=== PATIENT | female | born 1950 | race Caucasian/White ===

== ENCOUNTER 2020-02-23 13:25 | Inpatient (IN) | payer OTHER ==
[~2020-02-23] VITALS: Ht 154.9 cm; Wt 82.7 kg
[2020-02-23] MEDS ORDERED: ONDANSETRON HCL 4 MG/2 ML VIAL IV ONE (13:45)
[2020-02-23] MEDS ORDERED: MORPHINE SULFATE 4 MG/ML SYR/VIAL IV ONE (13:45)
[2020-02-23 13:55] LABS: Basophils # (auto) 0 10 ^3/uL (0-0.2); Basophils % (auto) 0.5 % (0.0-2.0); Eosinophils # (auto) 0.2 10 ^3/uL (0-0.8); Nucleated Red Blood Cells % 0.1 %; White Blood Cell 8.2 10^3/uL (4.4-10.8)
[2020-02-23 13:56] LABS: Eosinophils % (auto) 2.1 % (0.0-7.0); Hematocrit 35.9 % (36.0-46.0); Lymphocytes # (auto) 1.7 10 ^3/uL (0.4-5.4); Lymphocytes % (auto) 20.2 % (10.0-50.0); Mean Corpuscular Hemoglobin 27.2 pg (28.0-32.0); Mean Corpuscular Hgb Conc. 33.2 g/dL (32.0-36.0); Mean Corpuscular Volume 81.8 fL (80.0-100.0); Monocytes # (auto) 0.8 10 ^3/uL (0-1.3); Monocytes % (auto) 9.5 % (0.0-12.0); Neutrophils # (auto) 5.6 10 ^3/uL (1.6-8.6); Neutrophils % (auto) 67.7 % (37.0-80.0); Platelet Count (auto) 204 10^3/uL (140-450); Red Cell Distribution Width 18.7 % (11.8-14.3)
[2020-02-23 14:19] LABS: Albumin 3.2 g/dL (3.4-5.0); Anion Gap 12 (5-15); Blood Urea Nitrogen 14 mg/dL (7-18); Carbon Dioxide 22 mmol/L (21-32); Chloride 104 mmol/L (98-107); Glucose 102 mg/dL (74-106); Potassium 3.6 mmol/L (3.5-5.1); Sodium 138 mmol/L (136-145)
[2020-02-23 14:25] LABS: Alanine Aminotransferase 31 U/L (13-56); Alkaline Phosphatase 100 U/L (45-117); Aspartate Aminotransferase 30 U/L (15-37); BUN/Creatinine Ratio 9.5; Bilirubin, Total 0.4 mg/dL (0.2-1.0); GFR African American 45 mL/min; GFR Non-African American 38 mL/min; Total Protein 7.5 g/dL (6.4-8.2)
[2020-02-23 14:34] LABS: Calcium 5.6 mg/dL (8.5-10.1)
[2020-02-23] MEDS ORDERED: CALCIUM ACETATE 667 MG CAP PO ONE (14:45)
[2020-02-23] MEDS ORDERED: ALBUTEROL SULF 2.5 MG/0.5ML(0.5%) NEB SOLN NEB ONE (15:15)
[2020-02-23] MEDS ORDERED: CALCIUM GLUC 4.65meq/50ml D5AE 50 ML IV ONE (15:15)
[2020-02-23] MEDS ORDERED: LORazepam 2MG/ML-1ML VIAL IV ONE (15:15)
[2020-02-23] MEDS ORDERED: NITROGLYCERIN 0.4 MG SL TAB SL PRN ×2 (15:15→15:45)
[2020-02-23] MEDS ORDERED: IPRATROPIUM BROM 0.5 MG/2.5ML INH SOL NEB ONE (15:15)
[2020-02-23] MEDS ORDERED: MORPHINE SULF INJ 2 MG/ML SYRINGE 1ML IV PRN (15:15)
[2020-02-23] MEDS ORDERED: LORazepam 0.5 MG TAB PO PRN (15:45)
[2020-02-23] MEDS ORDERED: DEXTROSE (50%) 50ML SYRG IV PRN (15:45)
[2020-02-23] MEDS ORDERED: ONDANSETRON HCL 4 MG/2 ML VIAL IV PRN (15:45)
[2020-02-23] MEDS ORDERED: GABAPENTIN 100 MG CAP PO ONE (16:00)
[2020-02-23] MEDS: SODIUM CHLORIDE 0.9% 1,000 ML IV SCH (16:18)
[2020-02-23] MEDS ORDERED: InsuLIN REG 1unit/0.01ml Soln (100units/ml) SC SCH (17:00)
[2020-02-23] MEDS ORDERED: ACCU-CHEK COMFORT CURVE STRIP VI SCH (17:00)
--- NOTE | 2020-02-23 17:20 | NUR ---
MS admit from ER TAM ROSENBERG admitted to tele/MS after SBAR received. Patient oriented to MELQUIADES CAN, RN primary RN, TELE unit, room 218, bed A, and unit policies regarding patient care and visiting hours. Patient weighed by bedscale and encouraged to call if they need something. All questions and concerns addressed, patient verbalized understanding.
[2020-02-23 17:50] VITALS: BP 116/65
[2020-02-23] MEDS ORDERED: CLOP75TA28 PO (18:18)
[2020-02-23] MEDS ORDERED: GABA300C10 PO (18:18)
[2020-02-23] MEDS ORDERED: LEVO100T8 PO (18:18)
[2020-02-23] MEDS ORDERED: ESOM20CA PO (18:18)
[2020-02-23] MEDS ORDERED: CHOL20007 PO (18:18)
[2020-02-23] MEDS: CALCIUM W/VIT D (600MG/400IU) TAB PO SCH (18:32)
--- NOTE | 2020-02-23 19:09 | NUR ---
CARE ENDORSED TO ALONA VOGEL.
--- NOTE | 2020-02-23 19:20 | NUR ---
Opening Shift Note Assumed care of patient, awake and alert. No S/S of distress/SOB or pain. Instructed on POC and questions answered. Bed is locked in lowest position with side rails up x2 for safety, call light is within reach and patient encouraged to call for assistance PRN, will continue to monitor for changes Q1hr and PRN.
[2020-02-23 21:02] VITALS: BP 108/61
[2020-02-23] MEDS ORDERED: ATORVASTATIN 20 MG TAB PO SCH (22:00)
[2020-02-23] MEDS: METOPROLOL TARTRATE 25 MG TAB PO SCH (22:37)
[2020-02-23] MEDS: GABAPENTIN 100 MG CAP PO SCH (22:37)
--- NOTE | 2020-02-23 23:41 | NUR ---
UA SAMPLE SENT TO LAB PER ORDERS.
[2020-02-24 00:02] LABS: Urine Bacteria FEW /hpf (None Seen); Urine Blood Negative /uL (Negative); Urine Specific Gravity 1.011 (1.001-1.035); Urine WBC 32 /hpf (0 - 5)
[2020-02-24 00:05] LABS: Amphetamine Screen, Urine NEGATIVE (NEGATIVE); Barbiturate Scree,Urine NEGATIVE (NEGATIVE); Benzodiazephine Screen, Urine NEGATIVE (NEGATIVE); Cannabinoid Screen, Urine NEGATIVE (NEGATIVE); Cocaine Screen, Urine NEGATIVE (NEGATIVE); Opiate Scree,Urine POSITIVE (NEGATIVE); Phencyclidine Screen, Urine NEGATIVE (NEGATIVE)
[2020-02-24 00:12] LABS: Alcohol, Urine < 3.0 mg/dL (0-5)
[2020-02-24 05:00] VITALS: BP 98/57
[2020-02-24] MEDS: SODIUM CHLORIDE 0.9% 1,000 ML IV SCH ×2 (05:50→18:38)
[2020-02-24] MEDS: GABAPENTIN 100 MG CAP PO SCH ×3 (05:51→21:46)
[2020-02-24 06:04] LABS: Basophils # (auto) 0.1 10 ^3/uL (0-0.2); Basophils % (auto) 1.4 % (0.0-2.0); Eosinophils # (auto) 0.2 10 ^3/uL (0-0.8); Eosinophils % (auto) 2.7 % (0.0-7.0); Hematocrit 33.3 % (36.0-46.0); Hemoglobin 10.9 g/dL (12.2-16.2); Lymphocytes # (auto) 1.3 10 ^3/uL (0.4-5.4); Lymphocytes % (auto) 21.1 % (10.0-50.0); Mean Corpuscular Hemoglobin 27.2 pg (28.0-32.0); Mean Corpuscular Hgb Conc. 32.8 g/dL (32.0-36.0); Mean Corpuscular Volume 82.9 fL (80.0-100.0); Monocytes # (auto) 0.6 10 ^3/uL (0-1.3); Neutrophils # (auto) 4.1 10 ^3/uL (1.6-8.6); Neutrophils % (auto) 65.8 % (37.0-80.0); Nucleated Red Blood Cells % 0.1 %; Platelet Count (auto) 163 10^3/uL (140-450); Red Blood Cells 4.02 10^6/uL (4.0-5.20); Red Cell Distribution Width 18.4 % (11.8-14.3); White Blood Cell 6.3 10^3/uL (4.4-10.8)
[2020-02-24 06:22] LABS: Albumin 2.8 g/dL (3.4-5.0); Magnesium 2.1 mg/dL (1.6-2.6); Potassium 3.7 mmol/L (3.5-5.1)
[2020-02-24 06:25] LABS: BUN/Creatinine Ratio 11.7; Bilirubin, Total 0.4 mg/dL (0.2-1.0); Total Protein 6.7 g/dL (6.4-8.2)
[2020-02-24 06:26] LABS: INR 1.07 (0.9-1.15); Partial Thromboplastin Time 30.6 sec (23.64-32.05)
[2020-02-24 06:30] LABS: Calcium 5.6 mg/dL (8.5-10.1); Cholesterol 267 mg/dL (< 200); HDL Cholesterol 36 mg/dL (40-59); LDL Cholesterol 181 mg/dL (< 100); Triglycerides 276 mg/dL (< 150)
[2020-02-24 08:00] VITALS: BP 98/61
--- NOTE | 2020-02-24 08:07 | NUR ---
Opening Shift Note Assumed care of patient, awake and alert. Patient on room air, breath sounds even and unlabored. No S/S of distress/SOB or pain. Instructed on POC and to call for assist PRN. Bed at lowest locked position and call light within reach. Will continue to monitor for changes Q1hr and PRN.
[2020-02-24] MEDS: METOPROLOL TARTRATE 25 MG TAB PO SCH (08:10)
[2020-02-24] MEDS: ENOXAPARIN SOD 40 MG/0.4 ML SYRINGE SC SCH (08:10)
[2020-02-24] MEDS: CALCIUM W/VIT D (600MG/400IU) TAB PO SCH ×2 (08:11→17:47)
[2020-02-24] MEDS: DOCUSATE SOD 100 MG CAP PO SCH (08:11)
[2020-02-24] MEDS: ASPirin 81 mg TAB PO SCH (08:11)
[2020-02-24 08:58] VITALS: BP 98/61
[2020-02-24] MEDS ORDERED: CEFTRIAXONE SODIUM 2 GM in D5W 5% 50 ML IV SCH (10:00)
[2020-02-24] MEDS: CALCIUM ACETATE 667 MG CAP PO SCH ×2 (12:00→17:48)
--- NOTE | 2020-02-24 12:00 | NUR ---
IV insertion IV access obtained, via clean sterile technique by inserting 22 gauge catheter at right hand after 1 attempt. IV secured properly. No trauma to site. Patient tolerated well.
[2020-02-24] MEDS ORDERED: OPTISON 3ml Vial for INJ IV ONE (12:01)
[2020-02-24] MEDS: ATORVASTATIN 20 MG TAB PO SCH ×2 (14:04→21:46)
--- NOTE | 2020-02-24 16:33 | NUR ---
PATIENT C/O RIGHT CHEST PAIN AND HEADACHE. RATES IT 05/11, WILL MEDICATE PER MD ORDERS. Addendum: 02/24/20 at 1735 by Magaly Griffin RN PAIN REASSESSMENT PATIENT COMFORTABLY SLEEPING .
[2020-02-24] MEDS: HYDROcodone-ACET 5/325MG TAB PO PRN ×2 (16:34→20:44)
--- NOTE | 2020-02-24 16:35 | NUR ---
COLLECTED URINE SAMPLE ,SENT TO LAB VIA [employer] [facility].
[2020-02-24 17:18] VITALS: BP 95/59
[2020-02-24] MEDS ORDERED: CALCIUM W/VIT D (600MG/400IU) TAB PO SCH (18:00)
[2020-02-24 19:28] LABS: Creatinine, Urine 40 mg/dL (30.0-125.0); Sodium Urine 48 mmol/L (40-220)
--- NOTE | 2020-02-24 19:33 | NUR ---
closing shift note: Patient is comfortably resting in bed on room air, breath sounds even and unlabored . No c/o pain. No s/s of distress/sob noted. Bed at lowest locked position and call light within reach. Care endorsed to NOC LELA Caicedo.
[2020-02-24 22:00] VITALS: BP 107/62
[2020-02-25] MEDS: HYDROcodone-ACET 5/325MG TAB PO PRN (00:50)
[2020-02-25] MEDS: GABAPENTIN 100 MG CAP PO SCH ×3 (06:09→22:30)
[2020-02-25 06:16] VITALS: BP 109/56
[2020-02-25 06:39] LABS: Potassium 3.8 mmol/L (3.5-5.1)
[2020-02-25 06:49] LABS: Albumin 2.8 g/dL (3.4-5.0); BUN/Creatinine Ratio 12.1; Bilirubin, Total 0.4 mg/dL (0.2-1.0); Calcium 6.9 mg/dL (8.5-10.1); Phosphorus 4.9 mg/dL (2.5-4.90); Total Protein 6.7 g/dL (6.4-8.2)
[2020-02-25] MEDS: SODIUM CHLORIDE 0.9% 1,000 ML IV SCH ×2 (07:33→22:29)
[2020-02-25] MEDS: CALCIUM W/VIT D (600MG/400IU) TAB PO SCH (07:34)
[2020-02-25] MEDS: CALCIUM ACETATE 667 MG CAP PO SCH ×3 (07:34→18:00)
[2020-02-25 09:00] VITALS: BP 119/66
[2020-02-25] MEDS: DOCUSATE SOD 100 MG CAP PO SCH (10:00)
[2020-02-25] MEDS: ASPirin 81 mg TAB PO SCH (10:00)
[2020-02-25] MEDS: ENOXAPARIN SOD 40 MG/0.4 ML SYRINGE SC SCH (10:00)
--- NOTE | 2020-02-25 12:30 | NUR ---
PATIENT DID NOT TOLERATE LUNCH. SHE SAID SHE STILL DOES NOT FEEL WELL.
[2020-02-25 13:00] VITALS: BP 123/64
[2020-02-25] MEDS ORDERED: ACETAMINOPHEN 325 MG TAB PO PRN (14:15)
[2020-02-25 17:00] VITALS: BP 144/70
[2020-02-25] MEDS: METOCLOPRAMIDE HCL 5MG/ml INJ 2ml VIAL IV SCH ×2 (18:44→23:57)
--- NOTE | 2020-02-25 19:30 | NUR ---
Opening Shift Note Assumed care of patient, awake and alert. No S/S of distress/SOB, patient has no complaints of nausea at this time. POC discussed. Bed is locked in lowest position with side rails up x2 for safety. Call light is within reach and encouraged to call for assistance PRN, will continue to monitor for changes Q1hr and PRN.
[2020-02-25 22:00] VITALS: BP 151/70
[2020-02-25] MEDS: PANTOPRAZOLE 40 MG/10 ML VIAL INJ IV SCH (22:29)
[2020-02-25] MEDS: ATORVASTATIN 20 MG TAB PO SCH (22:29)
[2020-02-26 05:00] VITALS: BP 111/62
[2020-02-26] MEDS: GABAPENTIN 100 MG CAP PO SCH (05:41)
[2020-02-26] MEDS: METOCLOPRAMIDE HCL 5MG/ml INJ 2ml VIAL IV SCH (05:41)
[2020-02-26 06:31] LABS: Potassium 4.3 mmol/L (3.5-5.1)
[2020-02-26 06:39] LABS: Albumin 2.8 g/dL (3.4-5.0); BUN/Creatinine Ratio 12.5; Bilirubin, Total 0.7 mg/dL (0.2-1.0); Total Protein 6.4 g/dL (6.4-8.2)
--- NOTE | 2020-02-26 07:26 | NUR ---
Opening Shift Note Assumed care of patient, awake and alert. No S/S of distress/SOB or pain. Instructed on POC and to call for assist PRN, will continue to monitor for changes Q1hr and PRN.
[2020-02-26] MEDS: CALCIUM ACETATE 667 MG CAP PO SCH ×2 (07:49→11:41)
[2020-02-26] MEDS: DOCUSATE SOD 100 MG CAP PO SCH (09:52)
[2020-02-26] MEDS: PANTOPRAZOLE 40 MG/10 ML VIAL INJ IV SCH (09:52)
[2020-02-26] MEDS: ENOXAPARIN SOD 40 MG/0.4 ML SYRINGE SC SCH (09:52)
[2020-02-26] MEDS: ASPirin 81 mg TAB PO SCH (09:52)
[2020-02-26] MEDS ORDERED: CALC667C5 PO (10:43)
[2020-02-26] MEDS ORDERED: CHOL20007 PO (10:43)
[2020-02-26] MEDS ORDERED: ATOR20TA50 PO (10:43)
[2020-02-26] MEDS ORDERED: ESOM20CA PO (10:43)
[2020-02-26 13:10] VITALS: BP 127/59
== END 2020-02-26 13:30 | disposition home or self-care (01) | DRG 391 ==
LOC: EDBD 13:25 → ER 13:25 → TELE 13:26 → TELE-CENTR 17:11
PROVIDERS: ADMIT Hospitalist; ATTEND Hospitalist
DX: K21.9 Gastro-esophageal reflux disease without esophagitis (principal); N17.0 Acute kidney failure with tubular necrosis; E44.0 Moderate protein-calorie malnutrition; N10 Acute pyelonephritis; E83.51 Hypocalcemia; J44.9 Chronic obstructive pulmonary disease, unspecified; Z68.34 Body mass index [BMI] 34.0-34.9, adult; E16.2 Hypoglycemia, unspecified; E66.01 Morbid (severe) obesity due to excess calories; E83.39 Other disorders of phosphorus metabolism; E78.00 Pure hypercholesterolemia, unspecified; F41.1 Generalized anxiety disorder; I12.9 Hypertensive chronic kidney disease with stage 1 through stage 4 chronic kidney disease, or unspecified chronic kidney disease; N18.9 Chronic kidney disease, unspecified; Z82.49 Family history of ischemic heart disease and other diseases of the circulatory system; Z83.3 Family history of diabetes mellitus; Z86.73 Personal history of transient ischemic attack (TIA), and cerebral infarction without residual deficits; G89.29 Other chronic pain; M54.5 Low back pain
CPT/HCPCS: 36415; 36600; 71045; 76775; 80053; 80061; 80307; 81001; 82306; 82570; 82805; 82962; 83036; 83735; 83970; 84100; 84300; 84484; 85025; 85610; 85730; 93306; 94640; C9113; G0378; J0610; J0696; J2405; J7060; Q9956

== ENCOUNTER 2021-10-18 19:02 | Inpatient (IN) | payer OTHER ==
[~2021-10-18] VITALS: Ht 154.9 cm; Wt 81.1 kg
[~2021-10-18 19:02] MED LIST: ATOR20TA50 PO; CALC667C5 PO; CHOL20007 PO; CLOP75TA28 PO; ESOM20CA PO; GABA300C10 PO; LEVO100T8 PO
[2021-10-18] MEDS ORDERED: SODIUM CHLORIDE 0.9% 500 ML IV ONE (19:45)
[2021-10-19 00:08] LABS: Basophils # (auto) 0 10 ^3/uL (0-0.2); Nucleated Red Blood Cells % 0.1 %
[2021-10-19 00:11] LABS: Basophils % (auto) 0.3 % (0.0-2.0); Eosinophils # (auto) 0.1 10 ^3/uL (0-0.8); Eosinophils % (auto) 0.9 % (0.0-7.0); Hematocrit 35.1 % (36.0-46.0); Hemoglobin 12.2 g/dL (12.2-16.2); Lymphocytes # (auto) 1.2 10 ^3/uL (0.4-5.4); Lymphocytes % (auto) 8.8 % (10.0-50.0); Mean Corpuscular Hemoglobin 26.8 pg (28.0-32.0); Mean Corpuscular Hgb Conc. 34.8 g/dL (32.0-36.0); Mean Corpuscular Volume 76.9 fL (80.0-100.0); Monocytes # (auto) 0.9 10 ^3/uL (0-1.3); Monocytes % (auto) 6.8 % (0.0-12.0); Neutrophils # (auto) 11.3 10 ^3/uL (1.6-8.6); Neutrophils % (auto) 83.2 % (37.0-80.0); Red Blood Cells 4.57 10^6/uL (4.0-5.20); White Blood Cell 13.6 10^3/uL (4.4-10.8)
[2021-10-19 00:16] LABS: Red Cell Distribution Width 20.1 % (11.8-14.3)
[2021-10-19] MEDS ORDERED: ONDANSETRON HCL 4 MG/2 ML VIAL IV PRN (02:30)
[2021-10-19] MEDS ORDERED: DOCUSATE SOD 100 MG CAP PO PRN (02:30)
[2021-10-19] MEDS ORDERED: HYDROcodone-ACET 5/325MG TAB PO PRN (02:30)
[2021-10-19 04:09] LABS: Cholesterol 184 mg/dL (< 200); Triglycerides 102 mg/dL (< 150)
[2021-10-19 04:11] LABS: Alanine Aminotransferase 20 U/L (13-56); Aspartate Aminotransferase 21 U/L (15-37)
[2021-10-19 04:12] LABS: HDL Cholesterol 44 mg/dL (40-59); LDL Cholesterol 114 mg/dL (< 100)
[2021-10-19 04:18] LABS: Anion Gap 9 (5-15); Blood Urea Nitrogen 16 mg/dL (7-18); Carbon Dioxide 24 mmol/L (21-32); Chloride 104 mmol/L (98-107); Glucose 101 mg/dL (74-106); Potassium 3.3 mmol/L (3.5-5.1); Sodium 137 mmol/L (136-145)
[2021-10-19 04:19] LABS: Albumin 2.9 g/dL (3.4-5.0); Alkaline Phosphatase 85 U/L (45-117); Bilirubin, Total 0.7 mg/dL (0.2-1.0); GFR African American 56 mL/min; GFR Non-African American 46 mL/min; Total Protein 7.5 g/dL (6.4-8.2)
[2021-10-19 04:21] LABS: Calcium 5.9 mg/dL (8.5-10.1)
[2021-10-19 05:09] LABS: Basophils # (auto) 0.1 10 ^3/uL (0-0.2); Eosinophils # (auto) 0.2 10 ^3/uL (0-0.8); Hemoglobin 11.4 g/dL (12.2-16.2); Lymphocytes # (auto) 1.3 10 ^3/uL (0.4-5.4); Mean Corpuscular Volume 78.7 fL (80.0-100.0); Monocytes # (auto) 0.8 10 ^3/uL (0-1.3); Neutrophils # (auto) 9.4 10 ^3/uL (1.6-8.6); Red Cell Distribution Width 19.2 % (11.8-14.3)
[2021-10-19 05:12] LABS: Eosinophils % (auto) 2.1 % (0.0-7.0); Hematocrit 34.7 % (36.0-46.0); Lymphocytes % (auto) 10.8 % (10.0-50.0); Mean Corpuscular Hemoglobin 25.8 pg (28.0-32.0); Mean Corpuscular Hgb Conc. 32.9 g/dL (32.0-36.0); Monocytes % (auto) 7.1 % (0.0-12.0); Red Blood Cells 4.41 10^6/uL (4.0-5.20); White Blood Cell 11.9 10^3/uL (4.4-10.8)
[2021-10-19 05:31] LABS: Albumin 2.9 g/dL (3.4-5.0); Potassium 3.3 mmol/L (3.5-5.1)
[2021-10-19 05:36] LABS: BUN/Creatinine Ratio 12.9; Bilirubin, Total 0.7 mg/dL (0.2-1.0); Total Protein 7.6 g/dL (6.4-8.2)
[2021-10-19] MEDS: SODIUM CHLOR 0.9% PF (SALINE LOCK) 10ML VIAL/SYR IV SCH ×3 (06:00→22:47)
[2021-10-19] MEDS ORDERED: MORPHINE SULFATE INJECTION 2 MG/ML SYRG IV PRN (06:00)
[2021-10-19] MEDS ORDERED: NITROGLYCERIN 0.4 MG SL TAB SL PRN (06:00)
[2021-10-19 06:31] LABS: Calcium 5.9 mg/dL (8.5-10.1)
[2021-10-19] MEDS ORDERED: CALCIUM CARB 500 MG CHEW TAB PO ONE (06:45)
[2021-10-19] MEDS ORDERED: LEVOTHYROXINE SODIUM 88 MCG TAB PO SCH (07:00)
[2021-10-19] MEDS ORDERED: POTASSIUM CHL 20 Meq TABLET PO ONE (10:00)
[2021-10-19 11:32] VITALS: BP 96/73
[2021-10-19] MEDS: ZINC SULFATE 220mg CAP or TAB PO SCH (13:29)
[2021-10-19] MEDS: ASCORBIC ACID 500 MG TAB PO SCH ×2 (13:29→22:47)
[2021-10-19] MEDS: FAMOTIDINE (10MG/ML) 2ML VL IV SCH (13:29)
[2021-10-19] MEDS: ASPirin 81 mg TAB PO SCH (13:29)
[2021-10-19] MEDS: cefTRIAXone 1GM/50ML D5W 50 ML IV SCH (13:38)
[2021-10-19] MEDS: MULTIPLE VITAMIN TAB PO SCH (13:47)
[2021-10-19] MEDS ORDERED: CALCIUM GLUC 1,000mg/50ml-NS 50 ML IV ONE (15:00)
[2021-10-19] MEDS ORDERED: SODIUM CHLORIDE 0.9% 1,000 ML IV ONE (15:00)
[2021-10-19 15:11] VITALS: BP 122/73
[2021-10-19] MEDS ORDERED: IOHEXOL 350 MG/ML 100ML IJ ONE (19:06)
[2021-10-19 22:00] VITALS: BP 132/60
[2021-10-19] MEDS: ATORVASTATIN 20 MG TAB PO SCH (22:47)
[2021-10-20 05:00] VITALS: BP 109/59
[2021-10-20] MEDS: SODIUM CHLOR 0.9% PF (SALINE LOCK) 10ML VIAL/SYR IV SCH ×3 (06:01→21:49)
[2021-10-20] MEDS: LEVOTHYROXINE SODIUM 100 MCG TAB PO SCH (06:45)
[2021-10-20 07:38] LABS: Basophils # (auto) 0.1 10 ^3/uL (0-0.2); Eosinophils # (auto) 0.2 10 ^3/uL (0-0.8); Eosinophils % (auto) 3.8 % (0.0-7.0); Hemoglobin 11.1 g/dL (12.2-16.2); Monocytes # (auto) 0.6 10 ^3/uL (0-1.3); Red Cell Distribution Width 19.2 % (11.8-14.3); White Blood Cell 6.6 10^3/uL (4.4-10.8)
[2021-10-20 07:41] LABS: Basophils % (auto) 1.4 % (0.0-2.0); Hematocrit 34.3 % (36.0-46.0); Lymphocytes # (auto) 1.2 10 ^3/uL (0.4-5.4); Lymphocytes % (auto) 17.6 % (10.0-50.0); Mean Corpuscular Hemoglobin 25.7 pg (28.0-32.0); Mean Corpuscular Hgb Conc. 32.5 g/dL (32.0-36.0); Monocytes % (auto) 9.6 % (0.0-12.0); Neutrophils # (auto) 4.4 10 ^3/uL (1.6-8.6); Neutrophils % (auto) 67.6 % (37.0-80.0); Nucleated Red Blood Cells % 0.2 %; Red Blood Cells 4.34 10^6/uL (4.0-5.20)
[2021-10-20 07:44] LABS: Potassium 3.7 mmol/L (3.5-5.1)
[2021-10-20 07:52] LABS: Albumin 2.8 g/dL (3.4-5.0); Bilirubin, Total 0.4 mg/dL (0.2-1.0); Magnesium 2.4 mg/dL (1.6-2.6); Total Protein 6.5 g/dL (6.4-8.2)
[2021-10-20 08:30] VITALS: BP 117/61
[2021-10-20 08:46] LABS: Calcium 5.9 mg/dL (8.5-10.1)
[2021-10-20] MEDS: ASPirin 81 mg TAB PO SCH (10:16)
[2021-10-20] MEDS: ZINC SULFATE 220mg CAP or TAB PO SCH (10:17)
[2021-10-20] MEDS: cefTRIAXone 1GM/50ML D5W 50 ML IV SCH (10:17)
[2021-10-20] MEDS: MULTIPLE VITAMIN TAB PO SCH (10:17)
[2021-10-20] MEDS: ASCORBIC ACID 500 MG TAB PO SCH ×2 (10:17→21:39)
[2021-10-20] MEDS: FAMOTIDINE (10MG/ML) 2ML VL IV SCH (10:21)
[2021-10-20 10:46] VITALS: BP 111/88
[2021-10-20] MEDS: CALCIUM CARB 500 MG CHEW TAB PO SCH ×2 (18:06→21:39)
[2021-10-20] MEDS: ATORVASTATIN 20 MG TAB PO SCH (21:39)
[2021-10-20 22:00] VITALS: BP 121/72
[2021-10-21 05:00] VITALS: BP 102/52
[2021-10-21] MEDS: SODIUM CHLOR 0.9% PF (SALINE LOCK) 10ML VIAL/SYR IV SCH ×3 (06:00→22:11)
[2021-10-21] MEDS: CALCIUM CARB 500 MG CHEW TAB PO SCH ×4 (06:35→22:00)
[2021-10-21] MEDS: LEVOTHYROXINE SODIUM 100 MCG TAB PO SCH (06:35)
[2021-10-21 07:26] LABS: Potassium 3.9 mmol/L (3.5-5.1)
[2021-10-21 07:42] LABS: BUN/Creatinine Ratio 11.4; Calcium 6.3 mg/dL (8.5-10.1)
[2021-10-21 09:00] VITALS: BP 119/64
[2021-10-21] MEDS: cefTRIAXone 1GM/50ML D5W 50 ML IV SCH (10:19)
[2021-10-21] MEDS: ZINC SULFATE 220mg CAP or TAB PO SCH (10:20)
[2021-10-21] MEDS: ACETAMINOPHEN 325 MG TAB PO PRN ×2 (10:20→16:24)
[2021-10-21] MEDS: SUCRALFATE 1 GM/10 ML ORAL SUSP PO SCH ×3 (10:20→22:11)
[2021-10-21] MEDS: ASCORBIC ACID 500 MG TAB PO SCH ×2 (10:20→22:11)
[2021-10-21] MEDS: MULTIPLE VITAMIN TAB PO SCH (10:20)
[2021-10-21] MEDS: FAMOTIDINE (10MG/ML) 2ML VL IV SCH (10:20)
[2021-10-21] MEDS: ASPirin 81 mg TAB PO SCH (10:20)
[2021-10-21 12:30] VITALS: BP 117/73
[2021-10-21 17:00] VITALS: BP 112/64
[2021-10-21] MEDS: ATORVASTATIN 20 MG TAB PO SCH (22:11)
[2021-10-21] MEDS ORDERED: LORazepam 2MG/ML-1ML VIAL IV PRN (23:00)
[2021-10-22 05:40] VITALS: BP 118/71
[2021-10-22] MEDS: CALCIUM CARB 500 MG CHEW TAB PO SCH ×3 (06:00→18:00)
[2021-10-22] MEDS: LEVOTHYROXINE SODIUM 100 MCG TAB PO SCH (06:12)
[2021-10-22] MEDS: SODIUM CHLOR 0.9% PF (SALINE LOCK) 10ML VIAL/SYR IV SCH ×2 (06:12→14:00)
[2021-10-22] MEDS: SUCRALFATE 1 GM/10 ML ORAL SUSP PO SCH ×3 (06:12→17:00)
[2021-10-22 09:00] VITALS: BP 128/71
[2021-10-22] MEDS ORDERED: BENZOCAINE (DENTAL) 20 % SPRAY 60ML MT ONE (09:23)
[2021-10-22] MEDS: ASPirin 81 mg TAB PO SCH (09:57)
[2021-10-22] MEDS: cefTRIAXone 1GM/50ML D5W 50 ML IV SCH (09:57)
[2021-10-22] MEDS: ASCORBIC ACID 500 MG TAB PO SCH (09:57)
[2021-10-22] MEDS: ACETAMINOPHEN 325 MG TAB PO PRN (09:57)
[2021-10-22] MEDS: ZINC SULFATE 220mg CAP or TAB PO SCH (09:57)
[2021-10-22] MEDS: FAMOTIDINE (10MG/ML) 2ML VL IV SCH (09:57)
[2021-10-22] MEDS: MULTIPLE VITAMIN TAB PO SCH (10:00)
[2021-10-22] MEDS: MIDAZOLAM HCL 5 MG/ML-1ML VIAL ONE ×4 (11:47→11:56)
[2021-10-22] MEDS: fentaNYL CITRATE 100 MCG/2 ML VL ONE ×3 (11:47→11:53)
[2021-10-22] MEDS: diphenhdrAMINE HCL 50 MG/1 ML VL ONE ×2 (11:47→11:50)
[2021-10-22 17:00] VITALS: BP 111/66
[2021-10-22 17:08] VITALS: BP 111/66
[2021-10-22] MEDS ORDERED: PANTOPRAZOLE 40 MG TAB PO SCH (22:00)
== END 2021-10-22 19:00 | disposition home or self-care (01) | DRG 381 ==
LOC: EDBD 19:02 → ER 19:02 → OVERFLOW 19:03 → WEST WING 10-19 11:33
PROVIDERS: ADMIT Nurse Practitioner Family; ATTEND Internal Medicine Geriatric Medicine
PROC: 0DB98ZX Excision of Duodenum, Via Natural or Artificial Opening Endoscopic, Diagnostic (ICD-10-PCS; principal; 2021-10-18)
PROC: 0DB68ZX Excision of Stomach, Via Natural or Artificial Opening Endoscopic, Diagnostic (ICD-10-PCS; 2021-10-18)
PROC: 0DB38ZX Excision of Lower Esophagus, Via Natural or Artificial Opening Endoscopic, Diagnostic (ICD-10-PCS; 2021-10-18)
DX: K22.10 Ulcer of esophagus without bleeding (principal); D82.1 Di George's syndrome; N17.9 Acute kidney failure, unspecified; I24.9 Acute ischemic heart disease, unspecified; K29.70 Gastritis, unspecified, without bleeding; E83.51 Hypocalcemia; E03.9 Hypothyroidism, unspecified; K21.9 Gastro-esophageal reflux disease without esophagitis; E87.6 Hypokalemia; D64.9 Anemia, unspecified; Z20.822 Contact with and (suspected) exposure to COVID-19; M54.9 Dorsalgia, unspecified; R55 Syncope and collapse; E66.9 Obesity, unspecified; R56.9 Unspecified convulsions; Z82.49 Family history of ischemic heart disease and other diseases of the circulatory system; Z83.3 Family history of diabetes mellitus; Z86.73 Personal history of transient ischemic attack (TIA), and cerebral infarction without residual deficits; Z90.710 Acquired absence of both cervix and uterus; Z98.51 Tubal ligation status; Z68.33 Body mass index [BMI] 33.0-33.9, adult
CPT/HCPCS: 36415; 43239; 70450; 70551; 71045; 71250; 71275; 80048; 80053; 80061; 83735; 84443; 84484; 85025; 85379; 87040; 87426; 93005; 93306; 93886; 93970; 95819; 96360; G0378; J0696; J2250; J3490; J7042

== ENCOUNTER 2024-01-06 17:25 | Emergency (ER) | payer OTHER ==
[~2024-01-06] VITALS: Ht 154.9 cm; Wt 75.0 kg
[~2024-01-06 17:25] MED LIST changes: +GABA-1250 PO; -GABA300C10 PO
[2024-01-06 18:18] VITALS: BP 143/71; PULSE 82; RESP 16; TEMP 98.6; O2SAT 97
[2024-01-06] MEDS ORDERED: ACET500T58 PO (21:13)
== END 2024-01-06 21:38 | disposition home or self-care (01) ==
LOC: EDBD 17:25 → ER 17:25
DX: S83.8X2A Sprain of other specified parts of left knee, initial encounter (principal); S80.211A Abrasion, right knee, initial encounter; K21.9 Gastro-esophageal reflux disease without esophagitis; Z86.73 Personal history of transient ischemic attack (TIA), and cerebral infarction without residual deficits; Z98.890 Other specified postprocedural states; Z79.899 Other long term (current) drug therapy; W01.0XXA Fall on same level from slipping, tripping and stumbling without subsequent striking against object, initial encounter; Y93.89 Activity, other specified; Y92.89 Other specified places as the place of occurrence of the external cause; Y99.8 Other external cause status
CPT/HCPCS: 29505; 73562

== ENCOUNTER 2024-03-18 12:30 | Emergency (ER) | payer OTHER, MEDICAID ==
[~2024-03-18] VITALS: Ht 154.9 cm; Wt 80.0 kg
[~2024-03-18 12:30] MED LIST changes: +ACET500T58 PO
[2024-03-18 14:54] LABS: Chloride 105 mmol/L (98-107); Potassium 3.5 mmol/L (3.5-5.1); Sodium 141 mmol/L (136-145)
[2024-03-18 14:55] LABS: Anion Gap 8 (5-15); Calcium 6.7 mg/dL (8.5-10.1); Carbon Dioxide 28 mmol/L (20-30)
[2024-03-18 15:00] LABS: BUN/Creatinine Ratio 14.9 (10.0-20.0); Blood Urea Nitrogen 21 mg/dL (9-23); Glucose 108 mg/dL (74-106)
[2024-03-18 15:25] LABS: Basophils # (auto) 0.1 10 ^3/uL (0-0.2); Basophils % (auto) 0.9 % (0.0-2.0); Eosinophils # (auto) 0.2 10 ^3/uL (0-0.8); Eosinophils % (auto) 1.7 % (0.0-7.0); Hematocrit 40.1 % (36.0-46.0); Hemoglobin 13.1 g/dL (12.2-16.2); Lymphocytes # (auto) 1.5 10 ^3/uL (0.4-5.4); Lymphocytes % (auto) 13.5 % (10.0-50.0); Mean Corpuscular Hemoglobin 27.7 pg (28.0-32.0); Mean Corpuscular Hgb Conc. 32.6 g/dL (32.0-36.0); Mean Corpuscular Volume 85.1 fL (80.0-100.0); Monocytes # (auto) 0.7 10 ^3/uL (0-1.3); Neutrophils # (auto) 8.8 10 ^3/uL (1.6-8.6); Neutrophils % (auto) 77.9 % (37.0-80.0); Nucleated Red Blood Cells % 0.1 %; Red Blood Cells 4.71 10^6/uL (4.0-5.20); Red Cell Distribution Width 17.5 % (11.8-14.3); White Blood Cell 11.3 10^3/uL (4.4-10.8)
[2024-03-18 18:16] LABS: Urine Bacteria FEW /hpf (None Seen); Urine Blood TRACE /uL (Negative); Urine Clarity Clear (Clear); Urine Color Light-Yellow (Yellow); Urine Mucus FEW (None Seen); Urine Protein, UAD TRACE (Negative); Urine Specific Gravity 1.027 (1.001-1.035); Urine Urobilinogen Normal (Negative); Urine WBC 4 /hpf (0 - 5); Urine pH 5.5 (5.0-9.0)
[2024-03-18 18:24] VITALS: BP 132/72; PULSE 82; RESP 16; TEMP 97.9; O2SAT 96
== END 2024-03-18 18:25 | disposition home or self-care (01) ==
LOC: ER 12:30
DX: F41.8 Other specified anxiety disorders (principal); R07.89 Other chest pain; N18.9 Chronic kidney disease, unspecified; K21.9 Gastro-esophageal reflux disease without esophagitis; E03.9 Hypothyroidism, unspecified; Z90.710 Acquired absence of both cervix and uterus; Z79.01 Long term (current) use of anticoagulants; Z79.899 Other long term (current) drug therapy
CPT/HCPCS: 36415; 71046; 80048; 81001; 84484; 85025; 93005

== ENCOUNTER 2024-03-30 09:43 | Emergency (ER) | payer OTHER, MEDICAID ==
[~2024-03-30] VITALS: Ht 165.1 cm; Wt 82.0 kg
[2024-03-30 10:40] LABS: Lactic Acid w/Reflex 2.5 mmol/L (0.4-2.0)
[2024-03-30 10:41] LABS: Alanine Aminotransferase 20 U/L (7-40); Alkaline Phosphatase 83 U/L (46-116); Anion Gap 12 (5-15); Aspartate Aminotransferase 25 U/L (13-40); BUN/Creatinine Ratio 9.8 (10.0-20.0); Bilirubin, Total 0.3 mg/dL (0.2-1.0); Blood Urea Nitrogen 13 mg/dL (9-23); Calcium 6.1 mg/dL (8.5-10.1); Carbon Dioxide 25 mmol/L (20-30); Chloride 102 mmol/L (98-107); Glucose 131 mg/dL (74-106); Potassium 2.8 mmol/L (3.5-5.1); Sodium 139 mmol/L (136-145); Total Protein 7.6 g/dL (5.7-8.2)
[2024-03-30 10:49] LABS: Basophils # (auto) 0.1 10 ^3/uL (0-0.2); Basophils % (auto) 0.8 % (0.0-2.0); Eosinophils # (auto) 0.3 10 ^3/uL (0-0.8); Eosinophils % (auto) 3.3 % (0.0-7.0); Hematocrit 37.1 % (36.0-46.0); Hemoglobin 12.6 g/dL (12.2-16.2); Lymphocytes # (auto) 1.6 10 ^3/uL (0.4-5.4); Lymphocytes % (auto) 17.3 % (10.0-50.0); Mean Corpuscular Hemoglobin 28.6 pg (28.0-32.0); Mean Corpuscular Volume 84.1 fL (80.0-100.0); Monocytes # (auto) 0.6 10 ^3/uL (0-1.3); Monocytes % (auto) 6.7 % (0.0-12.0); Neutrophils # (auto) 6.6 10 ^3/uL (1.6-8.6); Neutrophils % (auto) 71.9 % (37.0-80.0); Nucleated Red Blood Cells % 0.2 %; Red Blood Cells 4.41 10^6/uL (4.0-5.20); Red Cell Distribution Width 17.7 % (11.8-14.3); White Blood Cell 9.2 10^3/uL (4.4-10.8)
[2024-03-30] MEDS: CALCIUM GLUC 1,000mg/50ml-NS 50 ML IV ONE (14:39)
[2024-03-30] MEDS: POTASSIUM EFFERVESENT TAB 25 MEQ GT ONE (14:40)
[2024-03-30 15:03] VITALS: RESP 14; O2SAT 95
[2024-03-30 15:11] VITALS: BP 133/75; PULSE 65; RESP 14; TEMP 97.5; O2SAT 95
== END 2024-03-30 15:54 | disposition short-term general hospital (02) ==
LOC: ER 09:43 → EDBD 09:43 → ER 15:54
DX: R47.1 Dysarthria and anarthria (principal); E83.51 Hypocalcemia; N18.9 Chronic kidney disease, unspecified; K21.9 Gastro-esophageal reflux disease without esophagitis; R56.9 Unspecified convulsions; E07.9 Disorder of thyroid, unspecified; Z86.73 Personal history of transient ischemic attack (TIA), and cerebral infarction without residual deficits; Z88.0 Allergy status to penicillin; Z79.899 Other long term (current) drug therapy; Z98.51 Tubal ligation status; Z90.710 Acquired absence of both cervix and uterus
CPT/HCPCS: 36415; 70450; 70496; 71045; 80053; 83605; 83735; 83880; 84484; 85025; 85379; 87040; 93005; 96365; 99285; J0613

== ENCOUNTER 2024-04-27 15:07 | Emergency (ER) | payer OTHER, MEDICAID ==
[~2024-04-27] VITALS: Ht 154.9 cm; Wt 75.0 kg
[2024-04-27 16:50] VITALS: PULSE 58; RESP 14; O2SAT 94
[2024-04-27 18:00] LABS: Basophils # (auto) 0.1 10 ^3/uL (0-0.2); Basophils % (auto) 0.9 % (0.0-2.0); Eosinophils # (auto) 0.2 10 ^3/uL (0-0.8); Eosinophils % (auto) 1.3 % (0.0-7.0); Hematocrit 33.5 % (36.0-46.0); Hemoglobin 11.1 g/dL (12.2-16.2); Lymphocytes # (auto) 1.3 10 ^3/uL (0.4-5.4); Lymphocytes % (auto) 10.7 % (10.0-50.0); Mean Corpuscular Hemoglobin 28.3 pg (28.0-32.0); Mean Corpuscular Hgb Conc. 33.2 g/dL (32.0-36.0); Mean Corpuscular Volume 85.2 fL (80.0-100.0); Monocytes # (auto) 0.7 10 ^3/uL (0-1.3); Monocytes % (auto) 5.6 % (0.0-12.0); Neutrophils # (auto) 9.7 10 ^3/uL (1.6-8.6); Neutrophils % (auto) 81.5 % (37.0-80.0); Nucleated Red Blood Cells % 0.1 %; Red Blood Cells 3.93 10^6/uL (4.0-5.20); Red Cell Distribution Width 18.1 % (11.8-14.3); White Blood Cell 11.9 10^3/uL (4.4-10.8)
[2024-04-27 18:14] LABS: Alanine Aminotransferase 20 U/L (7-40); Albumin 3.8 g/dL (3.2-4.8); Alkaline Phosphatase 70 U/L (46-116); Anion Gap 11 (5-15); Aspartate Aminotransferase 28 U/L (13-40); BUN/Creatinine Ratio 9.5 (10.0-20.0); Blood Urea Nitrogen 13 mg/dL (9-23); Calcium 6.1 mg/dL (8.5-10.1); Carbon Dioxide 25 mmol/L (20-30); Chloride 107 mmol/L (98-107); Glucose 118 mg/dL (74-106); Magnesium 1.5 mg/dL (1.6-2.6); Sodium 143 mmol/L (136-145)
[2024-04-27 18:15] LABS: Bilirubin, Total 0.5 mg/dL (0.2-1.0); Total Protein 5.9 g/dL (5.7-8.2)
[2024-04-27 19:30] VITALS: PULSE 61; RESP 20; O2SAT 96
[2024-04-27] MEDS: SODIUM CHLORIDE 0.9% 1,450 ML IV ONE (20:07)
[2024-04-27] MEDS: ACETAMINOPHEN 325 MG TAB PO ONE (20:32)
[2024-04-27] MEDS: LORazepam 2MG/ML-1ML VIAL IV ONE (20:32)
[2024-04-27 21:34] LABS: Blood Alcohol 3.8 mg/dL (<10); Magnesium 1.6 mg/dL (1.6-2.6)
[2024-04-27] MEDS: SODIUM CHLORIDE 0.9% 1,000 ML IVB ONE (22:31)
[2024-04-27] MEDS: POTASSIUM CHLORIDE 20 MEQ, LIDOCAINE 1% (LOCAL ANESTH.) 2 ML in SODIUM CHL 0.9% 100 ML IV ONE (22:45)
[2024-04-27] MEDS: POTASSIUM CHL 20MEQ/100ML 100 ML IV SCH (22:45)
[2024-04-27] MEDS: ALBUMIN 25% 100 ML IV ONE (23:06)
[2024-04-28] MEDS: MAGNESIUM SULFATE 1GM/100ML 100 ML IV SCH ×2 (00:01→02:45)
[2024-04-28] MEDS: POTASSIUM CHL 20MEQ/100ML 100 ML IV ONE (00:52)
[2024-04-28] MEDS: CALCIUM GLUC 1,000mg/50ml-NS 50 ML IV SCH ×2 (01:42→01:45)
[2024-04-28 07:04] LABS: Basophils # (auto) 0.1 10 ^3/uL (0-0.2); Basophils % (auto) 0.7 % (0.0-2.0); Eosinophils # (auto) 0.2 10 ^3/uL (0-0.8); Hematocrit 32.1 % (36.0-46.0); Hemoglobin 10.6 g/dL (12.2-16.2); Lymphocytes # (auto) 1.4 10 ^3/uL (0.4-5.4); Lymphocytes % (auto) 13.7 % (10.0-50.0); Mean Corpuscular Hemoglobin 28.6 pg (28.0-32.0); Mean Corpuscular Hgb Conc. 32.9 g/dL (32.0-36.0); Mean Corpuscular Volume 86.7 fL (80.0-100.0); Monocytes # (auto) 0.6 10 ^3/uL (0-1.3); Monocytes % (auto) 5.7 % (0.0-12.0); Neutrophils # (auto) 7.7 10 ^3/uL (1.6-8.6); Neutrophils % (auto) 77.9 % (37.0-80.0); Red Blood Cells 3.71 10^6/uL (4.0-5.20); Red Cell Distribution Width 18.2 % (11.8-14.3)
[2024-04-28 07:23] LABS: Alanine Aminotransferase 14 U/L (7-40); Albumin 3.9 g/dL (3.2-4.8); Alkaline Phosphatase 57 U/L (46-116); Anion Gap 9 (5-15); Aspartate Aminotransferase 16 U/L (13-40); BUN/Creatinine Ratio 8.7 (10.0-20.0); Blood Urea Nitrogen 10 mg/dL (9-23); Calcium 6.5 mg/dL (8.5-10.1); Carbon Dioxide 24 mmol/L (20-30); Chloride 113 mmol/L (98-107); Glucose 103 mg/dL (74-106); Potassium 2.9 mmol/L (3.5-5.1); Sodium 146 mmol/L (136-145)
[2024-04-28 07:24] LABS: Bilirubin, Total 0.5 mg/dL (0.2-1.0)
[2024-04-28 08:30] VITALS: PULSE 60; RESP 16; O2SAT 95
[2024-04-28 08:56] VITALS: BP 96/71; PULSE 60; RESP 16; TEMP 98.7; O2SAT 95
[2024-04-28] MEDS: POTASSIUM EFFERVESENT TAB 25 MEQ PO ONE (08:56)
[2024-04-28] MEDS: HYDROcodone-ACET 10/325MG TAB PO ONE (08:57)
== END 2024-04-28 09:33 | disposition short-term general hospital (02) ==
LOC: ER 15:07 → EDBD 15:07 → ER 04-28 09:33
DX: R55 Syncope and collapse (principal); E78.5 Hyperlipidemia, unspecified; K21.9 Gastro-esophageal reflux disease without esophagitis; Z86.73 Personal history of transient ischemic attack (TIA), and cerebral infarction without residual deficits; Z90.710 Acquired absence of both cervix and uterus; Z98.890 Other specified postprocedural states; Z98.51 Tubal ligation status; Z88.0 Allergy status to penicillin; Z79.899 Other long term (current) drug therapy
CPT/HCPCS: 36415; 70450; 71045; 80053; 80320; 83605; 83735; 84484; 85025; 87040; 93005; 96361; 96365; 96366; 96367; 96368; 96375; 99285; J0613; J2001; J2060; J3475; J3480; P9047

== ENCOUNTER 2024-08-12 12:03 | Emergency (ER) | payer OTHER, MEDICAID ==
[~2024-08-12] VITALS: Ht 154.9 cm; Wt 79.4 kg
[2024-08-12 13:23] LABS: Basophils # (auto) 0.2 10 ^3/uL (0-0.2); Basophils % (auto) 1.6 % (0.0-2.0); Eosinophils # (auto) 0.3 10 ^3/uL (0-0.8); Eosinophils % (auto) 2.2 % (0.0-7.0); Hematocrit 39.9 % (36.0-46.0); Hemoglobin 13.2 g/dL (12.2-16.2); Lymphocytes # (auto) 1.9 10 ^3/uL (0.4-5.4); Lymphocytes % (auto) 16.4 % (10.0-50.0); Mean Corpuscular Hemoglobin 28.3 pg (28.0-32.0); Mean Corpuscular Hgb Conc. 33.1 g/dL (32.0-36.0); Mean Corpuscular Volume 85.5 fL (80.0-100.0); Monocytes # (auto) 0.8 10 ^3/uL (0-1.3); Monocytes % (auto) 7.4 % (0.0-12.0); Neutrophils # (auto) 8.3 10 ^3/uL (1.6-8.6); Neutrophils % (auto) 72.4 % (37.0-80.0); Platelet Count (auto) 248 10^3/uL (140-450); Red Blood Cells 4.67 10^6/uL (4.0-5.20); Red Cell Distribution Width 17.5 % (11.8-14.3); White Blood Cell 11.5 10^3/uL (4.4-10.8)
[2024-08-12 13:32] LABS: Chloride 107 mmol/L (98-107); Potassium 3.5 mmol/L (3.5-5.1); Sodium 142 mmol/L (136-145)
[2024-08-12 13:33] LABS: Anion Gap 12 (5-15); Calcium 6.1 mg/dL (8.7-10.4); Carbon Dioxide 23 mmol/L (20-31)
[2024-08-12 13:38] LABS: BUN/Creatinine Ratio 5.7 (10.0-20.0); Blood Urea Nitrogen 8 mg/dL (9-23); Glucose 94 mg/dL (74-106); Magnesium 1.6 mg/dL (1.6-2.6)
[2024-08-12 13:40] LABS: Phosphorus 4.3 mg/dL (2.4-5.1)
[2024-08-12] MEDS: CALCIUM GLUC 1,000mg/50ml-NS 50 ML IV SCH (20:27)
[2024-08-12 20:47] VITALS: PULSE 71; RESP 18; O2SAT 97
[2024-08-12 22:28] VITALS: BP 123/57; PULSE 74; RESP 17; TEMP 98.1; O2SAT 95
== END 2024-08-12 22:29 | disposition home or self-care (01) ==
LOC: ER 12:03
DX: E83.51 Hypocalcemia (principal); N18.9 Chronic kidney disease, unspecified; E78.5 Hyperlipidemia, unspecified; K21.9 Gastro-esophageal reflux disease without esophagitis; Z86.73 Personal history of transient ischemic attack (TIA), and cerebral infarction without residual deficits; Z98.890 Other specified postprocedural states; Z90.710 Acquired absence of both cervix and uterus; Z88.0 Allergy status to penicillin; Z79.899 Other long term (current) drug therapy
CPT/HCPCS: 36415; 80048; 83735; 84100; 85025; 93005; 96365; 96366; 99285; J0613

== ENCOUNTER 2025-09-26 22:32 | Emergency (ER) | payer OTHER, MEDICAID ==
[~2025-09-26] VITALS: Ht 154.9 cm; Wt 83.6 kg
--- NOTE | 2025-09-26 22:49 | ECG ---
[facility] Test Date: 2025-09-26 Test Time: 22:45:55 Pat Name: TAM ROSENBERG Department: ED Room: Gender: F Chief Technician: MARTY : 1950 Requested By: MASOUD LOCKE Order Number: [id number] Reading MD: Feroz Alberto Measurements Intervals [place] Rate: 78 P: 46 AR: 217 QRS: -60 QRSD: 103 T: 35 QT: 413 QTc: 471 Interpretive Statements Sinus rhythm Borderline prolonged AR interval Left anterior fascicular block Low voltage, precordial leads Consider right ventricular hypertrophy Consider anterior infarct Electronically Signed On 09-27-2025 17:50:12 PST by Feroz Alberto Please click the below link to view image of tracing.
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
[2025-09-27 01:10] VITALS: BP 127/79; TEMP 98.3
[2025-09-27 01:13] VITALS: PULSE 61; RESP 18; O2SAT 97
== END 2025-09-27 01:25 | disposition home or self-care (01) ==
LOC: ER 22:32 → EDBD 22:32 → ER 09-27 01:25
DX: F41.9 Anxiety disorder, unspecified (principal); R06.02 Shortness of breath; Z88.0 Allergy status to penicillin; Z90.710 Acquired absence of both cervix and uterus; Z98.49 Cataract extraction status, unspecified eye
CPT/HCPCS: 93005